=== PATIENT | male | born 1970 | race Caucasian/White ===

== ENCOUNTER 2018-02-13 22:33 | Inpatient (IN) | payer OTHER ==
[~2018-02-13] VITALS: Ht 172.7 cm; Wt 73.9 kg
[2018-02-15] MEDS ORDERED: PANTOPRAZOLE SO40 MG PO (10:23)
[2018-02-15] MEDS ORDERED: ACIDOPHILUS1 EAC2 PO (10:24)
== END 2018-02-16 09:54 | disposition home or self-care (01) | DRG 813 ==
LOC: ER 22:33 → MEDJ 02-14 10:11
PROC: 30233R1 Transfusion of Nonautologous Platelets into Peripheral Vein, Percutaneous Approach (ICD-10-PCS; principal; 2018-02-14)
DX: D69.59 Other secondary thrombocytopenia (principal); K92.2 Gastrointestinal hemorrhage, unspecified; B34.9 Viral infection, unspecified; K52.89 Other specified noninfective gastroenteritis and colitis